=== PATIENT | male | born 1975 | race Caucasian/White ===

== ENCOUNTER → 2018-03-11 06:56 | Outpatient (CLI) | payer BC, SELFPAY ==
--- NOTE | 2018-03-11 07:25 | RAD_ITS ---
STUDY: X-RAY CHEST REASON FOR EXAM: Male, 42 years old. Positive PPD. TECHNIQUE: PA and lateral views of the chest. COMPARISON: None. FINDINGS: The lungs are clear and expanded. Scattered calcified granulomas. There is no demonstrated pleural abnormality. Normal size heart. Normal mediastinum and ada. Normal visualized pulmonary arteries. Normal visualized aortic arch and descending thoracic aorta. Normal visualized thoracic spine. Normal visualized ribs, clavicles, and shoulders. There is no demonstrated abnormality of the visualized soft tissue structures of the upper abdomen. RAD/Chest PA and Lateral IMPRESSION: Normal x-ray examination of the chest. Electronically Signed: Keshawn Kaplan MD at 9:33 EDT Tel [phone], Service support ,
[2018-03-11 08:11] LABS: Cholesterol 203 mg/dL (200); High Density Lipoprotein 38 mg/dL; Triglycerides 397 mg/dL; Very Low Density Lipoprotein 79 mg/dL (5-40)
[2018-03-13 10:21] LABS: HEPATITIS B SURFACE AG Negative (Negative); Hep B Surface Antibodies Reactive (.)
== END ==
PROVIDERS: Urology; Family Provider Family Medicine; PCP Family Medicine; Visit Provider Family Medicine
DX: E78.5 Hyperlipidemia, unspecified (principal); R76.11 Nonspecific reaction to tuberculin skin test without active tuberculosis
CPT/HCPCS: 36415; 71046; 80061; 86706; 87340

== ENCOUNTER 2019-10-26 22:07 | Emergency (ER) | payer BC, SELFPAY ==
[2019-10-26 22:08] VITALS: BP 135/92; PULSE 94; RESP 18; TEMP 36.5; O2SAT 99; BMI 29.1
[2019-10-26] MEDS: Ibuprofen 600 MG Tablet PO (22:43)
--- NOTE | 2019-10-26 22:45 | RAD_ITS ---
STUDY: X-RAY - LEFT ANKLE REASON FOR EXAM: Male, 44 years old. left ankle injury while playing soccer, pain in achilles TECHNIQUE: 3 view(s) of the ankle. COMPARISON: None. FINDINGS: There is a 5 mm sclerotic focus of the distal tibial metaphysis mostly representing benign process such as bone island. Normal medial and lateral malleoli. Normal tibiotalar articulation and ankle mortise. There is a plantar aspect calcaneal spur. The visualized subtalar, talonavicular, calcaneocuboid and tarsal articulations are normal. There is no demonstrated fracture. The soft tissue structures are unremarkable. RAD/Ankle min 3 Views IMPRESSION: There is no evidence of fracture or dislocation. There is a plantar aspect calcaneal spur. Electronically Signed: Juan Pablo Chapin MD at 22:59 EST , Service support ,
--- NOTE | 2019-10-26 23:10 | ED.DEP ---
ED Disposition - Plan for ED Patient: Instructions: Achilles Tendon Rupture Referrals: Dann Patten DO [Primary Care Provider] -
--- NOTE | 2019-10-26 23:15 | ED.DCSUM_ITS ---
- ER Visit Summary Date of Service: 10/26/19 Chief Complaint: Left ankle injury History of Present Illness: The patient is a 44 M presenting with left ankle injury. Patient states he was playing soccer and he felt he suddenly got kicked in the posterior left ankle. There was no one else around him. He fell. He continues to have pain to the posterior aspect of the left ankle. Denies other injuries. Physical Examination: Vitals are stable. Patient is afebrile. Alert no acute d istress. HEENT exam is unremarkable. Neck is supple. Lungs are clear and equal bilaterally. Heart is regular rate and rhythm. Extremities left Achilles tendon tenderness. Leonard test positive. Normal pulses. Skin is warm and dry. No focal neurologic deficit. Remainder of exam is unremarkable. Emergency Department Course and Treatment: Left ankle x-ray shows there is no evidence of fracture or dislocation. There is a plantar aspect calcaneal spur. He declined pain medication. He was given a boot orthosis and crutches. Discussed with Dr. Denton and he will be seen tomorrow. Advised to return to ED if worsening complaints. Disposition: Discharge home Impression: Left Achilles tendon rupture This note was generated with [employer] dictation software. It may contain incorrect words, spelling, and punctuation that were not noted in review of the chart prior to signing ED Disposition - Plan for ED Patient: Instructions: Achilles Tendon Rupture Referrals: Davdi Denton DO [STAFF PHYSICIAN] - Dann Patten DO [Primary Care Provider] -
--- NOTE | 2019-10-26 23:15 | ED.DEP ---
ED Disposition - Plan for ED Patient: Instructions: Achilles Tendon Rupture Referrals: Dann Patten DO [Primary Care Provider] - David Denton DO [STAFF PHYSICIAN] -
[2019-10-26 23:27] VITALS: RESP 16
== END 2019-10-26 23:28 | disposition home or self-care (01) ==
LOC: ED 22:46
PROVIDERS: Emergency Provider Emergency Medicine; PCP Family Medicine
DX: S86.012A Strain of left Achilles tendon, initial encounter (principal); M77.32 Calcaneal spur, left foot; W50.1XXA Accidental kick by another person, initial encounter; Y93.66 Activity, soccer; Y92.9 Unspecified place or not applicable; Y99.9 Unspecified external cause status
CPT/HCPCS: 73610; 99284

== ENCOUNTER 2019-10-30 12:30 | Day surgery (SDC) | payer BC, SELFPAY ==
[2019-10-30 12:59] VITALS: BP 130/74; PULSE 63; RESP 16; TEMP 37; O2SAT 98; BMI 29.7
[2019-10-30] MEDS: Lactated Ringers 1,000 ML 100 ML IV (13:14)
[2019-10-30] MEDS: Cefazolin 2 GM in 0.9% Normal Saline 100 ML IV (14:45)
--- NOTE | 2019-10-30 16:39 | OP.PCM_ITS ---
Problem List (1) Achilles tendon tear Status: Acute Qualifiers: Encounter type: initial encounter Laterality: left Qualified Code(s): S86.012A - Strain of left Achilles tendon, initial encounter Report of Operation Date of Procedure: 10/30/19 Pre-Operative Diagnosis: 1. Full tear of left Achilles tendon, acute Post-Operative Diagnosis: Same as preoperative Surgery/Procedure Performed:: Open repair of left Achilles tendon Description of Surgical Findings:: Consistent with diagnosis. Repair of tendon achieved. Leonard's test postoperatively elicited plantar flexion of the left lower extremity comparable to the contralateral side. Type of Anesthesia:: General/Regional - with a popliteal block to the left lower extremity Anesthesiologist: Colt Rodriguez Special Medications: 2 grams ancef given preoperatively Specimen's removed: None Drains: None Estimated Blood Loss (mL): 10 Description of Procedure: Surgeon: David Denton D.O. Co-Surgeon: Tano Kumar DPM Pathology: None Anesthesia: General with a popliteal block to left lower extremity Hemostasis: Pneumatic thigh tourniquet placed to level left thigh 200 mmHg for 60 minutes Estimated blood loss: less than 10 mL Materials: Arthrex Achilles repair system, Arthrex bone anchors x2, 2-0 Vicryl, 3-0 Vicryl, 3-0 nylon Injectables none Complications: None Condition: Stable Indications: Patient is a 44-year-old male with no significant past medical history who was playing soccer on October 26. During this game, he felt immediate pain in his left Achilles. Patient was unable to push off of his left foot and had weakened muscle strength when compared to his right side. Patient was diagnosed with an Achilles tendon tear, which was confirmed upon MRI. After multiple discussions were had with the patient about conservative and surgical interventions along with his goals for return to activity, it was decided that repair the Achilles tendon surgically would be performed. Operative report: Before the patient brought to the operating room, the risks, benefits, possible outcomes, possible complications of the procedure discussed with the patient. These were included but not limited to DVT, infection, delayed or nonhealing wounds, nonhealing tendon, loss of limb, loss of life. All the patient's questions were answered to his satisfaction and all of his concerns were addressed. No guarantees were made as to the outcome of the procedure. Patient understood all aspects of the procedure, consent was then signed by the patient. Before the patient was brought to the operating room, the anesthesiologist administered a popliteal block to the left lower extremity. Patient was then brought to the operating room. At that time, general anesthesia was obtained and anesthesia took control the airway. Patient was then placed on the table in the prone prone position. Care was taken make sure that adequate padding was placed in all spots of pressure. At this time, the Leonard test was then performed and no plantar flexion was had of the left foot when compared to the contralateral side. Next, well-padded pneumatic thigh tourniquet was placed to level of the left thigh. The left foot, ankle, leg were then scrubbed, prepped, draped in the usual sterile manner. Attention was then directed the posterior aspect of the left Achilles tendon. At this time, the palpable defect was palpated and marked. Next, a linear longitudinal incision was made at the level of the palpable defect approximately 3 cm in length. The incision was deepened utilizing sharp and blunt dissection. Care was taken to retract all vital neural and vascular structures. All bleeders were cauterized and ligated as necessary. At this time, the peritenon was then identified and transected in a transverse fashion. The peritenon was then reflected superiorly and inferiorly, thus exposing the Achilles tendon and the rupture of the operative site. Next, the proximal end of the Achilles tendon was grasped via an Allis clamp. At this time, the Arthrex Achilles repair jig was placed into the surgical site superiorly with the portions of the jig surrounding the Achilles tendon. Care was taken make sure this was placed underneath the paratenon. This was then inserted. Once fully inserted, the jig apparatus was widened. At this time, the sutures were placed from medial to lateral in standard fixation. Once all sutures were placed, the jig was removed in its entirety. The locking stitch was then performed medially and laterally. Each suture was then tested individually to make sure this did not pull out. Adequate tension was placed on each suture, it was determined that each suture was contained within the Achilles tendon. At this time, the suture ends were then passed through the proximal stump of the Achilles tendon with a Bobby needle to make sure that the sutures were well contained within the Achilles tendon. At this time attention was then directed at the Achilles tendon insertion. A stab incision was made just medial to the insertion point of the Achilles tendon at the level of the calcaneus and just lateral to the insertion point at the level of the calcaneus. Blunt dissection was continued down deep to the level of the calcaneus. At this time, drilling and tapping was performed in standard fashion for the bone anchors. Next, the suture was then passed from the proximal incision through the distal 2 incisions with the suture passer. The suture was then placed into the bone anchor, and with the foot held in maximal plantarflexion, the bone anchors were inserted into the medial and lateral aspects of the calcaneus. Once this was inserted, and the excess suture was removed and passed from the operative site. Leonard's test was then performed. Adequate plantar flexion was noted similar to that of the contralateral side. Each surgical site was then irrigated with copious amounts of normal sterile saline. At this time, any tendons contained in the surgical site were reapproximated coapted utilizing 2-0 Vicryl. The peritenon was reapproximated coapted utilizing 3-0 Vicryl. Subcutaneous tissues of all surgical sites were reapproximated coapted utilizing 3-0 Vicryl. The skin of all the surgical sites was reapproximated coapted utilizing 3-0 nylon in a simple interrupted and h orizontal mattress fashion. At this time, the pneumatic thigh tourniquet was then released and a prompt hyperemic response noted to the entirety of the left lower extremity. Each surgical site was then dressed with Betadine soaked gauze, and a dry sterile dressing consisting of 4x4 gauze. Care was taken make sure that adequate padding was placed on the posterior and anterior aspects of the level of the ankle and the foot. This was then wrapped with a Kerlix and an Matthew bandage. Next, cast padding was wrapped for the metatarsal heads extending proximally to level just distal to the tibial tuberosity. A posterior splint was fashioned to the left lower extremity and was adhered to left lower extremity using Matthew bandages. Care was taken make sure that the foot and ankle held in a plantarflexed position as the posterior splint dried. Neurovascular status was assessed at the end of the application and deemed intact to left lower extremity. The patient tolerated the anesthesia and the procedure well and was transported to the PACU with vital signs stable neurovascular status intact left lower extremity. After period of postoperative monitoring, patient will be discharged home with written and oral instructions for wound care and follow-up. Grafts/Implants Used: Arthrex Achilles repair system with bone anchors - Complications None - Admit VTE Documentation VTE Present on Admission: No VTE Mechan Device Prophylaxis: SCD's
[2019-10-30 16:47] VITALS: BP 123/79; BP 130/74; PULSE 73; RESP 14; TEMP 36.3; O2SAT 96
[2019-10-30 17:00] VITALS: BP 120/75; BP 130/74; PULSE 63; RESP 16; O2SAT 100
[2019-10-30 17:15] VITALS: BP 127/80; BP 130/74; PULSE 54; RESP 16; O2SAT 98
[2019-10-30 17:28] VITALS: BP 125/80; BP 130/74; PULSE 60; RESP 16; TEMP 36.7; O2SAT 100
== END 2019-10-30 18:05 | disposition home or self-care (01) ==
LOC: SDC 12:30 → AC 12:31
PROVIDERS: PCP Family Medicine; Visit Provider Orthopaedic Surgery
DX: S86.012A Strain of left Achilles tendon, initial encounter (principal); X58.XXXA Exposure to other specified factors, initial encounter; Y93.66 Activity, soccer; Y92.9 Unspecified place or not applicable; Y99.9 Unspecified external cause status
CPT/HCPCS: 01472; 27650; 64450; C1713; J7120; J2405

== ENCOUNTER → 2021-04-26 07:31 | Outpatient (CLI) | payer BC, SELFPAY ==
[2021-04-26 07:53] LABS: Absolute Lymphocyte Count 2.15 X10^3/uL (0.83-4.51); Absolute Neutrophil Count 3.6 X10^3/uL (2.0-7.7); Basophil# 0.06 X10^3/uL; Basophil% 0.9 % (0-1); Eosinophil# 0.07 X10^3/uL; Eosinophils% 1.1 % (0-5); Hematocrit 44.3 % (40-54); Hemoglobin 14.7 g/dL (13.0-16.5); Lymphocyte # 2.15 X10^3/ul (0.83-4.51); Lymphocyte % 33.6 % (19-41); Mean Corp Hgb Conc 33.2 g/dL (32-36); Mean Corpuscular Hgb 28.2 pg (27.0-32.0); Mean Corpuscular Volume 84.9 fL (80-94); Mean Platelet Vol. 8.5 fl (6.2-12.0); Monocyte# 0.54 X10^3/uL; Monocyte% 8.4 % (0-10); NRBC Flagged by Analyzer 0 % (0-5); Neutrophil # 3.57 X10^3/uL (2.7-7.7); Neutrophil % 55.8 % (47-70); Platelet Count 233 K/mm3 (150-450); RBC Distribution Width CV 12.7 % (11.6-14.6); RBC Distribution Width SD 39.1 fl (35.1-43.9); Red Blood Count 5.22 M/mm3 (4.6-6.2); White Blood Count 6.4 K/mm3 (4.4-11.0)
[2021-04-26 08:19] LABS: Bacteria 0 SEEN /hpf (None Seen); Mucous, Urine 0 SEEN /hpf (<or=2+); Red Blood Cells-Urine 0 SEEN /hpf (0-5); Squamous Epithelial Cells - UA 0 SEEN /hpf (0-5); White Blood Cells 0 SEEN /hpf (0-5)
[2021-04-26 08:23] LABS: ALB/GLOB Ratio 1.2 RATIO (0.9-2.4); AST(SGOT) 21 U/L (15-37); Alanine Aminotransfer ALT/SGPT 33 U/L (16-61); Albumin, Serum 3.8 g/dL (3.2-5.0); Alkaline Phosphatase 69 U/L (45-117); Anion Gap 6 (5-15); BUN 23 mg/dL (7-18); BUN/Creat Ratio 23.7 RATIO (10-20); Calcium,Total 8.7 mg/dL (8.5-10.1); Chloride 104 mmol/L (98-107); Cholesterol 203 mg/dL (200); Creatinine, Serum 0.97 mg/dL (0.70-1.30); EST Glomerular Filtration Rate 88 mL/min (>60); Est Glom Filt Rate - Afr Amer 107 mL/min (>60); Globulin 3.3 g/dL (2.2-4.2); Glucose 104 mg/dL (74-106); High Density Lipoprotein 41 mg/dL; PSA,Total - Annual Screen 1.57 ng/mL (0.00-4.00); Potassium 4.2 mmol/L (3.5-5.1); Protein, Total 7.1 g/dL (6.4-8.2); Sodium Level 139 mmol/L (136-145); Triglycerides 273 mg/dL; Very Low Density Lipoprotein 55 mg/dL (5-40)
[2021-04-26 09:01] LABS: Color, Urine Yellow (Yellow); Glucose, Dipstick Normal (Normal); Ketone-Dipstick Negative (Negative); Leukocyte Esterase-Dipstick Negative /ul (Negative); Nitrite-Dipstick Negative (Negative); Occult Blood-Urine Negative /ul (Negative); Protein-Dipstick Negative (Negative); Urine Bilirubin Dipstick Negative (Negative); Urine Clarity Clear (Clear); Urine Urobilinogen Normal (Normal)
== END ==
LOC: LAB.FUTURE 07:33 → LAB 07:35
PROVIDERS: PCP Family Medicine; Referring Provider Family Medicine; Visit Provider Family Medicine
DX: Z00.00 Encounter for general adult medical examination without abnormal findings (principal)
CPT/HCPCS: 36415; 80053; 80061; 81001; 84153; 85025; G0103

== ENCOUNTER → 2022-06-27 | Outpatient (CLI) | payer BC, SELFPAY ==
[2022-06-27 09:31] LABS: Color, Urine Yellow (Yellow); Glucose, Dipstick Normal (Normal); Ketone-Dipstick Negative (Negative); Leukocyte Esterase-Dipstick Negative /ul (Negative); Nitrite-Dipstick Negative (Negative); Occult Blood-Urine Negative /ul (Negative); Protein-Dipstick 15 mg/dl (Negative); Urine Bilirubin Dipstick Negative (Negative); Urine Clarity Clear (Clear); Urine Urobilinogen Normal (Normal)
[2022-06-27 09:34] LABS: Absolute Lymphocyte Count 1.71 X10^3/uL (0.83-4.51); Absolute Neutrophil Count 2.9 X10^3/uL (2.0-7.7); Basophil# 0.06 X10^3/uL; Basophil% 1.2 % (0-1); Eosinophil# 0.01 X10^3/uL; Eosinophils% 0.2 % (0-5); Hemoglobin 14.8 g/dL (13.0-16.5); Lymphocyte # 1.71 X10^3/ul (0.83-4.51); Lymphocyte % 33.3 % (19-41); Mean Corp Hgb Conc 32.9 g/dL (32-36); Mean Corpuscular Hgb 28.4 pg (27.0-32.0); Mean Corpuscular Volume 86.4 fL (80-94); Mean Platelet Vol. 8.7 fl (6.2-12.0); Monocyte# 0.42 X10^3/uL; Monocyte% 8.2 % (0-10); NRBC Flagged by Analyzer 0 % (0-5); Neutrophil # 2.92 X10^3/uL (2.7-7.7); Neutrophil % 56.9 % (47-70); Platelet Count 231 K/mm3 (150-450); RBC Distribution Width CV 12.8 % (11.6-14.6); RBC Distribution Width SD 40.1 fl (35.1-43.9); Red Blood Count 5.21 M/mm3 (4.6-6.2); White Blood Count 5.1 K/mm3 (4.4-11.0)
[2022-06-27 16:45] LABS: ALB/GLOB Ratio 1.2 RATIO (0.9-2.4); AST(SGOT) 33 U/L (15-37); Alanine Aminotransfer ALT/SGPT 47 U/L (16-61); Albumin, Serum 3.7 g/dL (3.2-5.0); Alkaline Phosphatase 78 U/L (45-117); Anion Gap 2 (5-15); BUN 27 mg/dL (7-18); BUN/Creat Ratio 28.3 RATIO (10-20); Calcium,Total 8.7 mg/dL (8.5-10.1); Chloride 108 mmol/L (98-107); Cholesterol 208 mg/dL (200); Creatinine, Serum 0.96 mg/dL (0.70-1.30); EST Glomerular Filtration Rate 90 mL/min (>60); Est Glom Filt Rate - Afr Amer 108 mL/min (>60); Globulin 3.2 g/dL (2.2-4.2); Glucose 104 mg/dL (74-106); High Density Lipoprotein 42 mg/dL; Potassium 4.9 mmol/L (3.5-5.1); Protein, Total 6.9 g/dL (6.4-8.2); Sodium Level 141 mmol/L (136-145); Triglycerides 283 mg/dL; Very Low Density Lipoprotein 57 mg/dL (5-40)
== END | disposition home or self-care (01) ==
LOC: LAB 08:56
PROVIDERS: PCP Family Medicine; Visit Provider Family Medicine
DX: Z00.00 Encounter for general adult medical examination without abnormal findings (principal); Z12.5 Encounter for screening for malignant neoplasm of prostate
CPT/HCPCS: 36415; 80053; 80061; 81002; 84153; 85025; G0103

== ENCOUNTER → 2023-08-14 | Outpatient (CLI) | payer BC, SELFPAY ==
[2023-08-14 09:31] LABS: Bacteria 0 SEEN /hpf (None Seen); Mucous, Urine 0 SEEN /hpf (<or=2+); Red Blood Cells-Urine 0 SEEN /hpf (0-5); Squamous Epithelial Cells - UA 0 SEEN /hpf (0-5); White Blood Cells 0 SEEN /hpf (0-5)
[2023-08-14 09:53] LABS: Hematocrit 44.6 % (40-54); Hemoglobin 14.9 g/dL (13.0-16.5); Mean Corp Hgb Conc 33.4 g/dL (32-36); Mean Corpuscular Hgb 28.8 pg (27.0-32.0); Mean Corpuscular Volume 86.3 fL (80-94); Mean Platelet Vol. 8.7 fl (6.2-12.0); Platelet Count 241 K/mm3 (150-450); RBC Distribution Width CV 12.7 % (11.6-14.6); RBC Distribution Width SD 39.8 fl (35.1-43.9); Red Blood Count 5.17 M/mm3 (4.6-6.2)
[2023-08-14 10:22] LABS: Anion Gap 2 (5-15); BUN 19 mg/dL (7-18); BUN/Creat Ratio 18.8 RATIO (10-20); Calcium,Total 9.2 mg/dL (8.5-10.1); Chloride 103 mmol/L (98-107); Cholesterol 202 mg/dL (200); Creatinine, Serum 1.01 mg/dL (0.70-1.30); EST Glomerular Filtration Rate 84 mL/min (>60); Est Glom Filt Rate - Afr Amer 101 mL/min (>60); Glucose 100 mg/dL (74-106); High Density Lipoprotein 55 mg/dL; PSA,Total - Annual Screen 1.42 ng/mL (0.00-4.00); Potassium 4.2 mmol/L (3.5-5.1); Sodium Level 136 mmol/L (136-145); Triglycerides 102 mg/dL; Very Low Density Lipoprotein 20 mg/dL (5-40)
[2023-08-14 10:48] LABS: Color, Urine Yellow (Yellow); Glucose, Dipstick Normal (Normal); Ketone-Dipstick Negative (Negative); Leukocyte Esterase-Dipstick Negative /ul (Negative); Nitrite-Dipstick Negative (Negative); Occult Blood-Urine Negative /ul (Negative); Protein-Dipstick 15 mg/dl (Negative); Specific Gravity, Urine 1.015 (1.002-1.030); Urine Bilirubin Dipstick Negative (Negative); Urine Clarity Clear (Clear); Urine Urobilinogen Normal (Normal)
== END | disposition home or self-care (01) ==
LOC: LAB 09:27
PROVIDERS: PCP Family Medicine; Referring Provider Urology; Visit Provider Urology
DX: Z12.5 Encounter for screening for malignant neoplasm of prostate (principal); E78.5 Hyperlipidemia, unspecified
CPT/HCPCS: 36415; 80048; 80061; 81001; 84153; 85027; G0103

== ENCOUNTER → 2024-09-30 | Outpatient (CLI) | payer BC, SELFPAY ==
[2024-09-30 08:31] LABS: Bacteria 0 SEEN /hpf (None Seen); Mucous, Urine 0 SEEN /hpf (<or=2+); Red Blood Cells-Urine 0 SEEN /hpf (0-5); Squamous Epithelial Cells - UA 0 SEEN /hpf (0-5); White Blood Cells 0 SEEN /hpf (0-5)
[2024-09-30 08:57] LABS: Absolute Lymphocyte Count 1.79 X10^3/uL (0.83-4.51); Absolute Neutrophil Count 2.9 X10^3/uL (2.0-7.7); Basophil# 0.07 X10^3/uL; Basophil% 1.3 % (0-1); Color, Urine Straw (Yellow); Eosinophil# 0.07 X10^3/uL; Eosinophils% 1.3 % (0-5); Glucose, Dipstick Normal (Normal); Hematocrit 44.1 % (40-54); Hemoglobin 14.7 g/dL (13.0-16.5); Ketone-Dipstick Negative (Negative); Leukocyte Esterase-Dipstick Negative /ul (Negative); Lymphocyte # 1.79 X10^3/ul (0.83-4.51); Lymphocyte % 33.9 % (19-41); Mean Corp Hgb Conc 33.3 g/dL (32-36); Mean Corpuscular Hgb 28.5 pg (27.0-32.0); Mean Corpuscular Volume 85.6 fL (80-94); Mean Platelet Vol. 8.8 fl (6.2-12.0); Monocyte# 0.43 X10^3/uL; Monocyte% 8.1 % (0-10); NRBC Flagged by Analyzer 0 % (0-5); Neutrophil # 2.91 X10^3/uL (2.7-7.7); Neutrophil % 55.2 % (47-70); Nitrite-Dipstick Negative (Negative); Occult Blood-Urine Negative /ul (Negative); Platelet Count 244 K/mm3 (150-450); Protein-Dipstick Negative (Negative); RBC Distribution Width CV 12.7 % (11.6-14.6); RBC Distribution Width SD 39.3 fl (35.1-43.9); Red Blood Count 5.15 M/mm3 (4.6-6.2); Specific Gravity, Urine 1.005 (1.002-1.030); Urine Bilirubin Dipstick Negative (Negative); Urine Clarity Clear (Clear); Urine Urobilinogen Normal (Normal); Urine pH 6.5 (5.0 - 8.0); White Blood Count 5.3 K/mm3 (4.4-11.0)
[2024-09-30 10:27] LABS: ALB/GLOB Ratio 1.2 RATIO (0.9-2.4); AST(SGOT) 23 U/L (15-37); Alanine Aminotransfer ALT/SGPT 36 U/L (16-61); Albumin, Serum 3.8 g/dL (3.2-5.0); Alkaline Phosphatase 76 U/L (45-117); Anion Gap 6 (5-15); BUN 24 mg/dL (7-18); BUN/Creat Ratio 26.3 RATIO (10-20); Calcium,Total 8.6 mg/dL (8.5-10.1); Chloride 104 mmol/L (98-107); Cholesterol 212 mg/dL (200); Creatinine, Serum 0.91 mg/dL (0.70-1.30); EST Glomerular Filtration Rate 94 mL/min (>60); Est Glom Filt Rate - Afr Amer 113 mL/min (>60); Globulin 3.3 g/dL (2.2-4.2); Glucose 107 mg/dL (74-106); High Density Lipoprotein 54 mg/dL; PSA,Total - Annual Screen 1.57 ng/mL (0.00-4.00); Potassium 4.6 mmol/L (3.5-5.1); Protein, Total 7.1 g/dL (6.4-8.2); Sodium Level 137 mmol/L (136-145); Triglycerides 170 mg/dL; Very Low Density Lipoprotein 34 mg/dL (5-40)
== END | disposition home or self-care (01) ==
PROVIDERS: PCP Family Medicine; Referring Provider Family Medicine; Visit Provider Family Medicine
DX: Z00.00 Encounter for general adult medical examination without abnormal findings (principal); Z12.5 Encounter for screening for malignant neoplasm of prostate
CPT/HCPCS: 36415; 80053; 80061; 81001; 84153; 85025; G0103